=== PATIENT | female | born 1940 | race Caucasian/White ===

== ENCOUNTER 2017-07-02 16:16 | Emergency (ER) | payer MEDICARE ==
--- NOTE | 2017-07-02 16:51 | RAD ---
CT of the head without contrast, 07/02/2017: History: CVA symptoms Comparison is made to a study from 03/13/2016. There is mild cerebral atrophy. There is an unchanged moderate sized area of encephalomalacia in the right temporal lobe with extension into the right parietal lobe. There is mild compensatory enlargement of portions of the right lateral ventricle. There is no shift of the midline structures. There is no evidence of acute intracranial hemorrhage or mass effect. IMPRESSION: 1. 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 2. No acute intracranial abnormality is detected. Note: The findings were called to personnel in the [facility] ER at 4:48 PM on 07/02/2017. PQRS Compliance Statement: One or more of the following individualized dose reduction techniques were utilized for this examination: 1. Automated exposure control 2. Adjustment of the mA and/or kV according to patient size 3. Use of iterative reconstruction technique
[2017-07-02] MEDS ORDERED: ALTEPLASE IV SCH (17:00)
[2017-07-02] MEDS ORDERED: IV NORMAL SALINE 50ML 50 ML IV ONE (17:00)
--- NOTE | 2017-07-02 17:08 | RAD ---
Portable chest, 07/02/2017: History: Left-sided weakness, code stroke Comparison is made to a study from 03/13/2016. The heart size and pulmonary vascularity are normal. There is calcific plaquing and tortuosity of the thoracic aorta. No pulmonary infiltrates are seen. There is no evidence of pleural fluid. Surgical rods and screws are present in the upper thoracic spine. IMPRESSION: No acute cardiopulmonary abnormality is detected.
[2017-07-02] MEDS ORDERED: ALTEPLASE 8.5 MG IV ONE (17:15)
[2017-07-02 17:20] VITALS: BP 150/90
[2017-07-02 17:24] LABS: BASO % 1 % (0-3); EOS # 0.1 x10^3/uL (0.0-0.7); EOS % 1 % (0-3); HEMATOCRIT 43.5 % (36.0-47.0); HEMOGLOBIN 14.4 g/dL (12.0-15.5); LYMPH # 1.7 x10^3/uL (1.0-4.8); LYMPH % 28 % (24-48); MEAN CORPUSCULAR HEMOGLOBIN 27 pg (25-35); MEAN CORPUSCULAR HGB CONC 33 g/dL (31-37); MEAN CORPUSCULAR VOLUME 81 fL (79-100); MONO # 0.7 x10^3/uL (0.0-1.1); MONO % 11 % (0-9); NEUT # 3.7 x10^3uL (1.8-7.7); NEUT % 60 % (31-73); PLATELET COUNT 215 x10^3/uL (140-400); RED BLOOD COUNT 5.37 x10^6/uL (3.50-5.40); RED CELL DISTRIBUTION WIDTH 14.6 % (11.5-14.5); WHITE BLOOD COUNT 6.2 x10^3/uL (4.0-11.0)
--- NOTE | 2017-07-02 17:29 | EKG ---
[address] [address] Test Date: 2017-07-02 Test Time: 16:59:22 Pat Name: JESSICA JULIO Department: Room: Gender: F [employer] Machine: [id number] : [id number] Requested By: MICHELLE HERNANDEZ Order Number: [id number] Reading MD: Measurements Intervals [place] Rate: 78 P: TX: QRS: 26 QRSD: 72 T: -16 QT: 382 QTc: 439 Interpretive Statements IRREGULAR RHYTHM, NO P-WAVE FOUND OTHERWISE NORMAL ECG RI6.01 Unconfirmed report Compared to ECG 03/13/2016 19:59:55 Atrial fibrillation no longer present
[2017-07-02 17:36] LABS: ALBUMIN 2.9 g/dL (3.4-5.0); ALBUMIN/GLOBULIN RATIO 0.6 (1.0-1.7); CALCIUM 9.3 mg/dL (8.5-10.1); CREATININE 1.1 mg/dL (0.6-1.0); GFR 48.2; POTASSIUM 3.8 mmol/L (3.5-5.1); TOTAL BILIRUBIN 0.9 mg/dL (0.2-1.0); TOTAL PROTEIN 7.6 g/dL (6.4-8.2)
--- NOTE | 2017-07-02 17:46 | PHYS DOC ---
Past History Past Medical History: A-Fib, Dementia, Diabetes, Hypertension, TIA Past Surgical History: Cholecystectomy, Hysterectomy, Knee Replacement, Tonsillectomy Alcohol Use: None Drug Use: None Adult General Chief Complaint Chief Complaint: NEURO SYMPTOMS/DEFICITS HPI HPI Patient is a 77-year-old female who comes from home by EMS with the concern for possible stroke. History is from EMS and from the patient's daughter. Patient's daughter states that she heard her mother walking around in the kitchen opening the refrigerator sometime between 3:00 and 3:15. The patient's daughter was downstairs at the time. Patient's daughter came upstairs at about 3:30 to find her mom in the chair with left facial droop and slurred speech. This is an acute neurological change for the patient. The daughter got the patient's shoes on and tried to get her up to take her to the emergency department but the patient's daughter was not able to get her to stand up due to left-sided weakness. She called EMS. EMS found the patient's blood sugar to be in the 200+ range. They found her to have left facial droop, left-sided weakness, and slurred speech. They brought her to the ED. On initial evaluation, the patient does exhibit left facial droop, slurred speech, and left-sided weakness. Patient's daughter tells me that about 5 years ago she was admitted to the hospital for a stroke. She was in the hospital about a week. When she left the hospital her symptoms were all resolved. She was back to normal. The daughter believes that maybe she did have a "TIA" after we discussed some more. Daughter has never been told that the patient had an abnormal CT scan. Patient is known to have atrial fibrillation. She was previously prescribed warfarin but she has not taken any for at least 2 months. Daughter states the patient's doctor left town and she doesn't have another doctor to prescribe it for her. Daughter states the patient has "Alzheimer's" and she has good days and bad days. She however is always ambulatory, she can get up and get around without any assistance, she gets herself food and drink out of the refrigerator, etc. She lives with her daughter. Daughter has never heard of TPA before and she is pretty sure her mother has never had that. She is 100% sure that her mother has not taken any warfarin for at least 2 months or any other blood thinner. Review of Systems Review of Systems Review of systems not able to be obtained because of the patient's critical condition and her dementia Current Medications Current Medications Current Medications Medications (Trade) Dose Ordered Sig/Anibal Start Time Stop Time Status Last Admin Dose Admin Alteplase, Recombinant 0 ml @ 0 mls/hr Q1H 07/02/17 17:00 07/02/17 17:03 DC Sodium Chloride 50 ml @ 0 mls/hr 1X ONCE 07/02/17 17:00 07/02/17 17:04 DC Allergies Allergies Allergies Coded Allergies Type Severity Reaction Last Updated Verified No Known Drug Allergies 03/13/16 No Physical Exam Physical Exam Constitutional: Alert. Attempts to follow commands. Vital stable. Warm and dry. Monitor shows atrial fibrillation. Blood pressure 150/80 range. HENT: Normocephalic, atraumatic, bilateral external ears normal, nose normal. [ ] Eyes: conjunctiva normal, no discharge. [] Neck: Normal range of motion, no stridor. [] Cardiovascular:Heart rate irregulaly irregular rhythm, no murmur [] Lungs & Thorax: Bilateral breath sounds clear to auscultation [] Abdomen: Bowel sounds normal, soft, no tenderness, no masses, no pulsatile masses. [] Skin: Warm, dry, no erythema, no rash. [] Extremities: No tenderness, no cyanosis, no clubbing, ROM intact, no edema. Neurologic: Alert, eyes are open. Speech is slurred but she is saying appropriate words. Left facial droop, left facial weakness, but not complete paralysis. Tongue is midline. Decreased strength for shrugging her left shoulder. She is able to hold her right arm to count of 10 that her left arm drifts down after 1-2 seconds. She is able to hold her right leg up for the count of 5 but her left leg only for maybe the count of 1-2. Unable to assess sensory, everywhere the patient is touched on either side of her body she squeaks and complains. She is wearing lace up ankle braces bilaterally. EKG EKG Twelve-lead EKG by me. Atrial fibrillation. There are no acute ST or T wave changes indicative of ischemia or infarction. No STEMI. Heart rate 78. 1659[] Radiology/Procedures Radiology/Procedures CT scan of the head interpreted by the radiologist and reviewed by me. The radiologist called me with the result. No acute bleed or evidence of acute stroke. There is a moderately sized right posterior MCA distribution stroke. I reviewed the patient's record, the old stroke was present on a CT scan from March 2016.[] Course & Med Decision Making Course & Med Decision Making Pertinent Labs and Imaging studies reviewed. (See chart for details) 77-year-old female who has a history of dementia, history of atrial fibrillation , who about 5 years ago had either a stroke or some type of neurologic event, brought to the ED by ambulance with possible stroke. I discussed at length with the patient's daughter who is here with her. I believe we established with certainty a timeline that the patient was normal and walking around between 3: 00 and 3:15, and that at 3:30 she was found to have stroke symptoms of facial droop, slurred speech, and unable to get up out of a chair. The patient had an admission about 5 years ago for what was originally said to be a stroke but the daughter said the patient was fine when she was discharged from the hospital. She has not had any facial droop, any weakness of her arm or leg, or any slurred speech. The patient is able to get up and walk around the house and get what she wants out of the refrigerator, etc. She does have a history of dementia and she has "good days and bad days" but she is verbal, and relatively self sufficient especially physically. The daughter has never heard of any abnormal CT scan findings and insisted the patient did not have any stroke symptoms prior to today as discussed above. The patient went to CT scan as a code stroke, see CT result. She does not have a bleed. A significant area of encephalomalacia that is old. The CT was clouded to . I called the neurologist and discussed the case with Dr. Diaz. He recommended that at this time the patient does not have any contraindication and should be offered TPA. She is clearly different than she was and we are well within the timeline. I discussed this with the patient's daughter. I explained that there is a risk of bleeding complication but that eye and the neurologist at are recommending that the patient get TPA at this time and explained the rationale for that. The daughter is in agreement. accepted the patient for transfer to . Transfer paperwork was completed and EMS was called for an emergent transfer to . She will be seen in the emergency department for consideration of whether she needs any further evaluation or treatment emergently. I returned to recheck the patient just prior to the TPA being started. The patient's facial weakness is significantly better. Her slurred speech is improved. She is more talkative. Her after arm strength is better. She is able to hold up her left arm for at least the count of 5. However, the patient is not able to lift her left leg off the bed at all, she is able to move it, but she is able to quickly hold her right leg up for the count of 5 as instructed but she is not able to lift her left leg independently at all. When her left leg is lifted for her, it immediately drifts back down to the bed. This represents a significant difference according to the patient's daughter because her left leg strength is usually normal. Because her symptoms are still significantly present, TPA was started. Critical care time 90 minutes including bedside evaluation and multiple re- evaluations, discussion of the case with radiologist and neurologist, consideration of TPA, discussion with the patient and her family, ordering TPA, documentation, writing orders. [] Dragon Disclaimer Dragon Disclaimer This electronic medical record was generated, in whole or in part, using a voice recognition dictation system. Departure Departure: Impression: Primary Impression: Acute ischemic right MCA stroke Disposition: XFER SHT-TRM HOSP Condition: GUARDED Referrals: PCP,NO (PCP) MICHELLE HERNANDEZ MD Jul 02, 2017 17:46
== END 2017-07-02 18:37 | disposition short-term general hospital (02) ==
LOC: ER 16:16
DX: I63.411 Cerebral infarction due to embolism of right middle cerebral artery (principal); F02.80 Dementia in other diseases classified elsewhere, unspecified severity, without behavioral disturbance, psychotic disturbance, mood disturbance, and anxiety; E11.9 Type 2 diabetes mellitus without complications; G30.9 Alzheimer's disease, unspecified; I10 Essential (primary) hypertension; I48.91 Unspecified atrial fibrillation; Z86.73 Personal history of transient ischemic attack (TIA), and cerebral infarction without residual deficits
CPT/HCPCS: 36415; 37195; 70450; 71010; 80053; 84484; 85025; 85610; 85730; 93005; 99291; 99292; J2997